=== PATIENT | female | born 1965 | race Caucasian/White ===

== ENCOUNTER 2024-10-17 12:03 | Outpatient (RCR) | payer BC, SELFPAY ==
--- NOTE | 2024-10-17 13:14 | HP.PTEVAL ---
Patient's Visit Information Visit Information Visit Information: SAUNDRA OWENS is a 59 year old F referred to Physical Therapy by Dr. Candido Dailey MD with a diagnosis of Chronic Cervical Radic. Date of Evaluation: 10/17/24 Physical Therapist: GUILLERMO Tse Visit Plan Frequency: 2x /Week Duration: 6 Weeks Plan: 10 visits for c-spine stretching, postural exercises, light traction, MT to paraspinals and suboccip release with HEP HEP: supine chin tucks with 1/2 towel roll Subjective Subjective: Pt has been on meds and been in PT for neck issues in the past. For 5 years she has been on amitriptyline with no side effects. About 3-4 months ago she started to have pins and needles and itching on the L sternum up neck and side of neck and L shoulder blade and down lateral arm and sometimes to the hand. She had an X-ray and it showed degeneration of the neck (it was done in [place]) and she also had a nerve conduction test that showed C5-C6 and C6-C7. She scratches due to the itches and then she scratches it raw. She can not wear jewelry on her neck because it is extreme pain in the back of the neck to the point that her neck can not hold her head up kind of pain. The pain and the itching keeps her up at night. She has not seen a neck specialist recently. Clerical work during the day. She raises her arm over her head to get temporary relief. She sleeps with no pillows under her head at night. 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 Posture: Sits with good posture. And has a L support at work. UE AROM: fullAROM UE MMT: R shoulder flex 7 and L 6.7 R shoulder ABD 5.7 and L 4.5 R shoulder ER 5.4 and L 4.6 Supine chin tucks with 1/2 towel roll and pt felt a pull up the back of her neck. After 3 X 10 she did not feel as strong of a pull. Palpation: tender with occipital release and upper c-spine paraspinals Balance/Special Test Scores Oswestry Neck Score: 17 Goals Goal 1:: I HEP Goal Time Frame: 6-8 Weeks Goal 2:: Decrease freq of itching and L shoulder and neck pain Goal Time Frame: 6-8 Weeks Goal 3:: Improve extension C-spine AROM ( 50% on eval with some increase discomfort) Goal Time Frame: 6-8 Weeks Rehabilitation Potential Rehabilitation Potential: Excellent Anticipated Interventions Patient/Client Instruction: Educate patient on: Condition and Plan of Care For the Purpose of:: To decrease pain, To increase ROM, To improve nutrient delivery to tissue, To improve muscle performance and motor function, To improve ability to perform ADL's, To improve health of tissue, To decrease soft tissue restriction and To increase flexibility/ROM Therapeutic Exercise to Include: Strength training, Endurance training, Postural training, Flexibilty training, Neuromotor development, Passive ROM, Active ROM and Scapular Strength/Stabilization For the Purpose of:: To decrease pain, To increase ROM, To improve nutrient delivery to tissue, To improve muscle performance and motor function, To improve ability to perform ADL's, To increase tolerance to activity/condition/position, To improve performance and independence with ADL's, To improve health of tissue, To decrease soft tissue restriction and To increase flexibility/ROM Manual Therapy Techniques to Include: Passive ROM and Soft tissue mobilization For the Purpose of:: To decrease pain, To increase ROM, To improve nutrient delivery to tissue, To improve muscle performance and motor function, To improve health of tissue, To decrease soft tissue restriction and To increase flexibility/ROM Cryotherapy (ice pack, ice massage): Yes Thermo therapy (hot pack): Yes Ultrasound (thermal/non thermal): Yes For the Purpose of:: To decrease pain, To increase ROM, To improve nutrient delivery to tissue, To improve muscle performance and motor function, To improve health of tissue, To decrease soft tissue restriction and To increase flexibility/ROM Text: Thank you for the opportunity to evaluate your patient. For Medicare and Medicare HMO plans, please review the plan of care and approve it. It will need to be FAXED BACK to us at [phone] for Medicare purposes. For Medicare only, by signing this I certify the plan of care. Please let me know if there are questions or concerns regarding this plan of care. Physician Signature: Date:
--- NOTE | 2025-03-11 08:50 | HP.PT.NRP ---
Patient Information Patient Information: SAUNDRA OWENS was seen in my office for initial evaluation on 10/17/24. The following Plan of Care was established for this patient: POC Established Initial Frequency: 2x /Week Initial Duration: 6 Weeks Anticipated Interventions Patient/Client Instruction: Educate patient on: Condition and Plan of Care For the Purpose of:: To decrease pain, To increase ROM, To improve nutrient delivery to tissue, To improve muscle performance and motor function, To improve ability to perform ADL's, To improve health of tissue, To decrease soft tissue restriction and To increase flexibility/ROM Therapeutic Exercise to Include: Strength training, Endurance training, Postural training, Flexibilty training, Neuromotor development, Passive ROM, Active ROM and Scapular Strength/Stabilization For the Purpose of:: To decrease pain, To increase ROM, To improve nutrient delivery to tissue, To improve muscle performance and motor function, To improve ability to perform ADL's, To increase tolerance to activity/condition/position, To improve performance and independence with ADL's, To improve health of tissue, To decrease soft tissue restriction and To increase flexibility/ROM Manual Therapy Techniques to Include: Passive ROM and Soft tissue mobilization For the Purpose of:: To decrease pain, To increase ROM, To improve nutrient delivery to tissue, To improve muscle performance and motor function, To improve health of tissue, To decrease soft tissue restriction and To increase flexibility/ROM Cryotherapy (ice pack, ice massage): Yes Thermo therapy (hot pack): Yes Ultrasound (thermal/non thermal): Yes For the Purpose of:: To decrease pain, To increase ROM, To improve nutrient delivery to tissue, To improve muscle performance and motor function, To improve health of tissue, To decrease soft tissue restriction and To increase flexibility/ROM Last Seen Last Seen: This patient was last seen in our office 10/17/24. Pertinent comments regarding their Physical therapy will appear below: DC PT At this point I will be discontinuing this patient from physical therapy. I would be happy to see this patient again in the future if found appropriate by the physician. Thank you! Shea Arreola, GUILLERMO Balance/Gait/Functional tests Balance/Special Test Scores Oswestry Neck Score: 17
== END 2024-10-17 19:00 | disposition home or self-care (01) ==
LOC: PT 12:03
PROVIDERS: PCP Internal Medicine; Referring Provider Internal Medicine; Visit Provider Internal Medicine
DX: M54.12 Radiculopathy, cervical region (principal)
CPT/HCPCS: 97161